=== PATIENT | female | born 1995 | race Caucasian/White ===

== ENCOUNTER 2024-11-17 00:08 | Emergency (ER) | payer MEDICAID ==
[2024-11-17 00:43] LABS: #Basophils 0.03 10x3/uL (0.0-0.2); #Eosinophils 0.14 10x3/uL (0.0-0.7); #Monocytes 0.60 10x3/uL (0.11-0.59); #Neutrophils 5.86 10x3/uL (1.40-6.50); %Basophils 0.3 % (0.0-1.0); %Eosinophils 1.5 % (0.0-10.0); %Lymphocytes 29.6 % (21.0-51.0); %Monocytes 6.3 % (0.0-10.0); %Neutrophils 62.0 % (42.0-75.0); Hematocrit 33.6 % (36.0-47.0); Hemoglobin 11.4 g/dL (12.0-16.0); Mean Corpuscular Hemoglobin 29.3 pg (27.0-31.0); Mean Corpuscular Volume 86.4 fL (78.0-98.0); Platelet Count 373 10x3/uL (130-400); Red Blood Cell (RBC) Count 3.89 mill/uL (4.20-5.40); White Blood Cell (WBC) Count 9.46 10x3/uL (4.8-10.8)
[2024-11-17 00:48] LABS: Bacteria/HPF 1+ HPF (None Seen); CAUTI Indications for Culture Pelvic or flank pain; Glucose, Urine (Dipstick) Normal (Negative); Leukocyte Negative Leu/uL (Negative); Protein, Urine (Dipstick) Negative (Neg-Trace); RBC/HPF 0-3 HPF (0-3); Specific Gravity, Urine 1.011 (1.002-1.036); WBC/HPF 0-3 HPF (0-3)
[2024-11-17 00:49] LABS: Urine Culture Reflex No No
[2024-11-17 00:55] LABS: BHCG - Serum Negative (NEGATIVE); Pregs Control Background? CLEAR/WHITE (CLR/WHITE); Pregs Control Bar Appear? YES (CONTROL BAR)
[2024-11-17] MEDS ORDERED: Prochlorperazine 10 MG/2 ML VIAL ONE ×2 (02:15→02:23)
[2024-11-17] MEDS ORDERED: diphenhydrAMINE 50 MG/ML VIAL ONE (02:15)
[2024-11-17 02:43] LABS: ALT (SGPT) 17 U/L (Less than 34); AST (SGOT) 29 U/L (11-34); Albumin 3.5 g/dL (3.1-4.5); Alkaline Phosphatase 86 U/L (40-110); Anion Gap 16 mmol/L (10-20); BUN (Urea Nitrogen) 7 mg/dL (7.0-18.7); Bilirubin, Total 0.2 mg/dL (0.3-1.2); Calc. Creatinine Clearance 0 mL/min (70-130); Calcium 9.1 mg/dL (7.8-10.44); Carbon Dioxide 22 mmol/L (22-29); Chloride 103 mmol/L (98-107); Globulin 3.6 g/dL (2.4-3.5); Glucose 103 mg/dL (70-105); Lipase 17 U/L (8-78); Potassium 3.8 mmol/L (3.5-5.1); Sodium 137 mmol/L (136-145)
[2024-11-17] MEDS ORDERED: Iopamidol 370 76% 100 ML VIAL ONE (11:26)
== END 2024-11-17 03:19 | disposition home or self-care (01) ==
LOC: ERS 00:08
DX: R10.31 Right lower quadrant pain (principal); Z79.899 Other long term (current) drug therapy
CPT/HCPCS: 74177; 80053; 81001; 83690; 84703; 85025; 96365; 96375; J0780; J1200; J2270